=== PATIENT | male | born 1950 | race Caucasian/White ===

== ENCOUNTER 2018-10-20 11:29 | Emergency (ER) | payer OTHER ==
[2018-10-20 14:31] LABS: Potassium 4.2 mmol/L (3.5-5.1)
[2018-10-20 14:53] LABS: Absolute Lymphocytes (CBC) 1.8 K/uL (0.7-4.9); Absolute Monocytes 0.5 K/uL (0.1-1.3); Absolute Neutrophil 4.5 K/uL (1.8-8.0); Basophils % 0.5 % (0-1.3); Eosinophils % 2.1 % (0-4.4); Hematocrit 44.2 % (39.6-49.0); Lymphocytes % 25.5 % (15.3-44.8); MPV 7.1 fL (7.6-11.3); Monocytes % 7.2 % (3.3-12.3); RBC Red Blood Cell Count 5.01 M/uL (4.33-5.43)
--- NOTE | 2018-10-20 14:54 | RAD REPORT ---
EXAM DESCRIPTION: US - Lower Extremity Artery [facility] - 10/20/2018 1:51 pm CLINICAL HISTORY: Left leg pain and numbness COMPARISON: None FINDINGS: Left common femoral arterial waveform is biphasic Superficial femoral artery waveform is monophasic and diminished in amplitude. Significant plaque is present. Left popliteal artery waveform monophasic and diminished in amplitude with significant plaque. Left posterior tibial artery waveform monophasic and diminished in amplitude. Color Doppler seen with in the left dorsalis pedis artery. Waveform was not obtained IMPRESSION: Significant proximal disease involving the arteries of the left lower extremity. CT fabio ogram recommended for further evaluation
--- NOTE | 2018-10-20 15:44 | RAD REPORT ---
EXAM DESCRIPTION: CT - Lower Ext Angio - 10/20/2018 3:27 pm CLINICAL HISTORY: leg pain Left leg pain, claudication. COMPARISON: Lower Extremity Artery [facility] dated 10/20/2018 TECHNIQUE: CT angiography of the left lower extremity was performed with MIPs. All CT scans are performed using dose optimization technique as appropriate and may include automated exposure control or mA/KV adjustment according to patient size. FINDINGS: Stenting is present in the distal abdominal aorta. Extensive stenting is also seen in the in the left common iliac artery. 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 However, there is no evidence of blood flow within the stent. Additional stent is seen extendi ng from the proximal left common iliac artery to the right internal iliac artery. The proximal aspect of the stent also shows chronic occlusion. The distal right the internal iliac branches do show evid ence of blood flow, however. Similarly blood fluid is seen in the left internal iliac artery branches . However, there is no appreciable flow in the left external iliac artery. A bifemoral bypass graft als o shows occlusion. The left common femoral and superficial femoral arteries show no appreciable blood flow. The distal left SFA, popliteal artery and distal vessels show mild blood flow, predominantly v ia collateralization of muscular branches. IMPRESSION: Chronic occlusion is noted involving left common iliac artery, external iliac artery, co mmon femoral artery and superficial femoral artery. Bifemoral bypass graft also appears occluded. Disease/diminished flow is seen in the distal SFA and runoff vessels via collateralized muscular bran ches.
--- NOTE | 2018-10-20 17:00 | ER ---
Nurse's Notes [facility] Name: Josias Stroud Age: 67 yrs Sex: Male : 1950 Arrival Date: 10/20/2018 Time: 11:31 Bed 14 Private MD: Diagnosis: Peripheral vascular disease, unspecified-with chronic arterial occlusion ;Atherosclerosis of [place] arteries of extremities with intermittent claudication, left leg Presentation: 10/20 11:38 Presenting complaint: Left thigh pain x 4 days. Hx of stents and clots in stent in left hb leg. Transition of care: patient was not received from another setting of care. Onset of symptoms was October 17, 2018. Risk Assessment: Do you want to hurt yourself or someone else? Patient reports no desire to harm self or others. Care prior to arrival: None. 11:38 Method Of Arrival: Wheelchair hb 11:38 Acuity: MARGO 3 hb Historical: - Allergies: 16:51 No Known Allergies; sg - PMHx: 16:51 DVT; sg - PSHx: 16:51 Stents; sg - Immunization history:: Adult Immunizations up to date. - Social history:: Smoking status: Patient/guardian denies using tobacco. - Ebola Screening: : No symptoms or risks identified at this time. Screenin:10 Abuse screen: Denies threats or abuse. Denies injuries from another. Nutritional sg screening: No deficits noted. Tuberculosis screening: No symptoms or risk factors identified. Never had TB. Fall Risk None identified. Assessment: 12:10 General: Appears in no apparent distress. comfortable, well groomed, well developed, sg well nourished, Behavior is calm, cooperative, appropriate for age. Pain: Complains of pain in left leg Quality of pain is described as aching, sharp, numb. Neuro: Level of Consciousness is awake, alert, obeys commands, Oriented to person, place, time, situation, Cable Maintainer are equal bilaterally Moves all extremities. Full function Gait is steady, Speech is normal, Facial symmetry appears normal, Pupils are PERRLA. Cardiovascular: Capillary refill is sluggish in left toes. Respiratory: Airway is patent Respiratory effort is even, unlabored, Respiratory pattern is regular, symmetrical. GI: Abdomen is round non-distended. : No signs and/or symptoms were reported regarding the genitourinary system. EENT: No signs and/or symptoms were reported regarding the EENT system. Derm: Skin is pale, to LLE. Musculoskeletal: No signs and/or symptoms reported regarding the musculoskeletal system. Vital Signs: 11:40 BP 148 / 100; Pulse 88; Resp 16; Temp 98.2; Pulse Ox 100% on R/A; Pain 4/10; hb 16:00 BP 136 / 89; Pulse 89; Resp 17; Temp 98.2; Pulse Ox 99% on R/A; Pain 3/10; sg Therese Coma Score: 16:00 Eye Response: spontaneous(4). Verbal Response: oriented(5). Motor Response: obeys sg commands(6). Total: 15. ED Course: 11:31 Patient arrived in ED. as 11:40 Triage completed. hb 11:41 Arm band placed on. hb 12:10 Patient has correct armband on for positive identification. Bed in low position. Call sg light in reach. Side rails up X2. classroom monitor on. Pulse ox on. NIBP on. Warm blanket given. Head of bed elevated. 12:49 Pierce Villalba PA is PHCP. jr8 12:49 Malcom Sanches MD is Attending Physician. jr8 12:57 Gabriel Eisenberg, GRAEME is Primary Nurse. sg 13:52 [employer] [facility] In Process Unspecified. EDMS 13:56 Patient moved back from ultrasound. sg 14:16 Initial lab(s) drawn, by ct, sent to lab. Inserted saline lock: 20 gauge in left ms antecubital area, using aseptic technique. Blood collected. 15:[address] vm2 15:28 Lower Ext Angio In Process Unspecified. EDMS 17:20 No provider procedures requiring assistance completed. IV discontinued, intact, sg bleeding controlled, No redness/swelling at site. Pressure dressing applied. Administered Medications: No medications were administered Outcome: 16:59 Discharge ordered by . jr8 17:30 Discharged to home ambulatory. sg 17:30 Condition: good 17:30 Discharge instructions given to patient, Instructed on discharge instructions, follow up and referral plans. safety practices, Demonstrated understanding of instructions, follow-up care. 17:34 Patient left the ED. sg Signatures: Dispatcher [employer] EDMS Gabriel Eisenberg, RN RN sg Ivette Hercules [place] Pierce Villalba, PA PA jr8 Paty Luna, RN RN Elda Guer[facility]
--- NOTE | 2018-10-20 17:00 | EDPHYS ---
Physician Documentation [facility] Name: Josias Stroud Age: 67 yrs Sex: Male : 1950 Arrival Date: 10/20/2018 Time: 11:31 Bed 14 Private MD: ED Physician Malcom Sanches HPI: 10/20 13:59 This 67 yrs old Male presents to ER via Wheelchair with complaints of Leg jr8 Pain. 13:59 Onset: The symptoms/episode began/occurred acutely, 3 day(s) ago. Modifying factors: jr8 The symptoms are alleviated by remaining still, the symptoms are aggravated by weight bearing, walking. Associated signs and symptoms: Pertinent positives: calf tenderness, numbness, tingling. Severity of symptoms: At their worst the symptoms were moderate, in the emergency department the symptoms are unchanged. The patient has experienced a previous episode. The patient has not recently seen a physician. Patient has history of both dvt and aneurysm in legs. Stated that the left leg had stent for aneurysm. Unknown if with PAD. Stated that he started to have acute leg pain with walking to left side. Getting worse and now with some numbness and tingling . Historical: - Allergies: 16:51 No Known Allergies; sg - PMHx: 16:51 DVT; sg - PSHx: 16:51 Stents; sg - Immunization history:: Adult Immunizations up to date. - Social history:: Smoking status: Patient/guardian denies using tobacco. - Ebola Screening: : No symptoms or risks identified at this time. ROS: 13:59 Eyes: Negative for injury, pain, redness, and discharge, ENT: Negative for injury, jr8 pain, and discharge, Neck: Negative for injury, pain, and swelling, Cardiovascular: Negative for chest pain, palpitations, and edema, Respiratory: Negative for shortness of breath, cough, wheezing, and pleuritic chest pain, Abdomen/GI: Negative for abdominal pain, nausea, vomiting, diarrhea, and constipation, Back: Negative for injury and pain, Skin: Negative for injury, rash, and discoloration, Neuro: Negative for headache, weakness, numbness, tingling, and seizure. 13:59 MS/extremity: Positive for pain, paresthesias, of the left leg. Exam: 13:59 Eyes: Pupils equal round and reactive to light, extra-ocular motions intact. Lids and jr8 lashes normal. Conjunctiva and sclera are non-icteric and not injected. Cornea within normal limits. Periorbital areas with no swelling, redness, or edema. ENT: Nares patent. No nasal discharge, no septal abnormalities noted. Tympanic membranes are normal and external auditory canals are clear. Oropharynx with no redness, swelling, or masses, exudates, or evidence of obstruction, uvula midline. Mucous membranes moist. Neck: Trachea midline, no thyromegaly or masses palpated, and no cervical lymphadenopathy. Supple, full range of motion without nuchal rigidity, or vertebral point tenderness. No Meningismus. Cardiovascular: Regular rate and rhythm with a normal S1 and S2. No gallops, murmurs, or rubs. Normal PMI, no JVD. No pulse deficits. Respiratory: Lungs have equal breath sounds bilaterally, clear to auscultation and percussion. No rales, rhonchi or wheezes noted. No increased work of breathing, no retractions or nasal flaring. Abdomen/GI: Soft, non-tender, with normal bowel sounds. No distension or tympany. No guarding or rebound. No evidence of tenderness throughout. Back: No spinal tenderness. No costovertebral tenderness. Full range of motion. Skin: Warm, dry with normal turgor. Normal color with no rashes, no lesions, and no evidence of cellulitis. Neuro: Awake and alert, GCS 15, oriented to person, place, time, and situation. Cranial nerves II-XII grossly intact. Motor strength 5/5 in all extremities. Sensory grossly intact. Cerebellar exam normal. Normal gait. 13:59 Musculoskeletal/extremity: Extremities: grossly normal except: noted in the left leg: Patient has decreased cap refill to left leg. No palpable pulses present to left PT and DP arteries. Cool to touch on left side when compared to right . Vital Signs: 11:40 BP 148 / 100; Pulse 88; Resp 16; Temp 98.2; Pulse Ox 100% on R/A; Pain 4/10; hb 16:00 BP 136 / 89; Pulse 89; Resp 17; Temp 98.2; Pulse Ox 99% on R/A; Pain 3/10; sg Therese Coma Score: 16:00 Eye Response: spontaneous(4). Verbal Response: oriented(5). Motor Response: obeys sg commands(6). Total: 15. MDM: 12:49 Patient medically screened. jr8 16:55 Data reviewed: vital signs, nurses notes, lab test result(s), radiologic studies, CT jr8 scan, ultrasound. Data interpreted: Pulse oximetry: on room air is 100 %. Interpretation: normal. Counseling: I had a detailed discussion with the patient and/or guardian regarding: the historical points, exam findings, and any diagnostic results supporting the discharge/admit diagnosis, lab results, radiology results. ED course: Discussed case with Dr. Kei Doan at [facility]. At this time he feels patient can f/u with him in the next 24-48 hours. Is having his office call to set up appointment. Will send him with CD's of studies completed today . 10/20 13:28 Order name: CBC with Diff; Complete Time: 14:58 [facility] 10/20 13:28 Order name: Basic Metabolic Panel; Complete Time: 14:42 jr8 10/20 13:28 Order name: Protime (+inr); Complete Time: 15:03 8 10/20 13:28 Order name: Ptt, Activated; Complete Time: 15:03 8 10/20 13:29 Order name: US LE Artery Uni Ltd; Complete Time: 14:58 8 10/20 15:05 Order name: Lower Ext Angio; Complete Time: 15:49 EDMS 10/20 13:28 Order name: IV; Complete Time: 14:17 8 10/20 16:50 Order name: Diet Regular; Complete Time: 16:50 iw Administered Medications: No medications were administered Disposition: 10/21 06:48 Co-signature as Attending Physician, Malcom Sanches MD I agree with the assessment and tyree plan of care. Disposition: 10/20/18 16:59 Discharged to Home. Impression: Peripheral vascular disease, unspecified - with chronic arterial occlusion , Atherosclerosis of [place] arteries of extremities with intermittent claudication, left leg. - Condition is Stable. - Discharge Instructions: Intermittent Claudication, Peripheral Vascular Disease, Atherosclerosis. - Medication Reconciliation Form, Thank You Letter, Antibiotic Education, Prescription Opioid Use form. - Follow up: Private Physician; When: 24 Hours; Reason: Recheck today's complaints, Continuance of care, Re-evaluation by your physician. - Problem is new. - Symptoms have improved. - Notes: Dr. Kei Doan [facility] [id number]) [place], [address] ([phone]) Signatures: Dispatcher [employer] EDGabriel Gar, RN RN Malcom Roman MD MD cha Roszak, Josh, PA PA jr8 Paty Luna RN RN Corrections: (The following items were deleted from the chart) 10/20 17:34 16:59 10/20/2018 16:59 Discharged to Home. Impression: Peripheral vascular disease, sg unspecified - with chronic arterial occlusion ; Atherosclerosis of [place] arteries of extremities with intermittent claudication, left leg. Condition is Stable. Forms are Medication Reconciliation Form, Thank You Letter, Antibiotic Education, Prescription Opioid Use. Follow up: Private Physician; When: 24 Hours; Reason: Recheck today's complaints, Continuance of care, Re-evaluation by your physician. Problem is new. Symptoms have improved. jr8
== END 2018-10-20 17:34 | disposition home or self-care (01) ==
LOC: ER 11:29
DX: I70.212 Atherosclerosis of native arteries of extremities with intermittent claudication, left leg (principal); Z86.718 Personal history of other venous thrombosis and embolism
CPT/HCPCS: 36415; 73706; 80048; 85025; 85610; 85730; 93926; 99285; Q9967